=== PATIENT | male | born 2000 | race Hispanic/Latino ===

== ENCOUNTER 2024-03-09 12:42 | Inpatient (IN) | payer OTHER, SELFPAY ==
[2024-03-09] MEDS ORDERED: Ketamine In 0.9 % NaCl 50 MG/5 ML SYRINGE ONE (12:52)
[2024-03-09] MEDS ORDERED: Ipratropium/Albuterol 3 ML NEB NEB PRN (13:58)
[2024-03-09] MEDS ORDERED: Ondansetron PF 4 MG/2 ML Vial IVP PRN (13:58)
[2024-03-09 14:55] LABS: #Basophils 0.03 10x3/uL (0.0-0.2); %Basophils 0.2 % (0.0-1.0); %Eosinophils 0.2 % (0.0-10.0); %Lymphocytes 7.1 % (21.0-51.0); %Monocytes 5.7 % (0.0-10.0); %Neutrophils 86.6 % (42.0-75.0); Hemoglobin 15.6 g/dL (14.0-18.0); Mean Corpuscular HGB CONC 33.9 g/dL (32.0-36.0); Mean Corpuscular Hemoglobin 30.1 pg (27.0-31.0); Mean Corpuscular Volume 88.6 fL (78.0-98.0); Mean Platelet Volume 11.1 fL (7.4-10.4); Platelet Count 158 10x3/uL (130-400); RBC Distribution Width 11.9 % (11.5-14.5); Red Blood Cell (RBC) Count 5.19 mill/uL (4.70-6.10)
[2024-03-09] MEDS ORDERED: CEFAZOLIN 2 GM in Sodium Chloride 0.9% 100 ML IVPB SCH (15:00)
[2024-03-09 15:01] LABS: Anion Gap 15 mmol/L (10-20); BUN (Urea Nitrogen) 11 mg/dL (8.9-20.6); Calc. Creatinine Clearance 0 mL/min (70-130); Calcium 8.9 mg/dL (7.8-10.44); Carbon Dioxide 21 mmol/L (22-29); Chloride 105 mmol/L (98-107); Estimated GFR 128; Glucose 98 mg/dL (70-105); INR-International Normal Ratio 1.1; PTT 32.3 sec (22.9-36.1); Prothrombin Time 14.1 sec (12.0-14.7); Sodium 137 mmol/L (136-145)
[2024-03-09] MEDS ORDERED: CEFAZOLIN 2 GM VIAL ONE (16:34)
[2024-03-09] MEDS ORDERED: fentaNYL 50 mcg/mL 1 mL Vial ONE ×3 (16:34→19:12)
[2024-03-09] MEDS ORDERED: Lidocaine 1% PF 5 ML VIAL ONE (17:01)
[2024-03-09] MEDS ORDERED: Rocuronium Bromide 10 MG/ML (10ML VIAL) ONE (17:01)
[2024-03-09] MEDS ORDERED: fentaNYL PF 100 MCG/2 ML SYRINGE ONE (17:01)
[2024-03-09] MEDS ORDERED: PROPOFOL 20 ML ONE (17:01)
[2024-03-09] MEDS ORDERED: Dexamethasone 20 MG/5 ML VIAL ONE (17:36)
[2024-03-09] MEDS ORDERED: Ondansetron PF 4 MG/2 ML Vial ONE (17:59)
[2024-03-09] MEDS ORDERED: Ketorolac Tromethamine 30 MG (1 mL) VIAL ONE (17:59)
[2024-03-09] MEDS ORDERED: PACU-Morphine 4MG/ML VIAL SLOW IVP PRN (18:24)
[2024-03-09] MEDS ORDERED: Morphine Sulfate 2 MG/ML SYRINGE SLOW IVP PRN (18:24)
[2024-03-09] MEDS ORDERED: Ondansetron HCl/PF 4 MG/2 ML Vial IVP PRN (18:24)
[2024-03-09] MEDS ORDERED: Promethazine HCl 25 MG/ML VIAL IM PRN (18:24)
[2024-03-09] MEDS ORDERED: HYDROmorphone 2 MG/ML VIAL SLOW IVP PRN (18:24)
[2024-03-09] MEDS ORDERED: SUGAMMADEX SODIUM 200 MG/2 ML VIAL ONE (18:25)
[2024-03-09] MEDS ORDERED: HYDROmorphone 0.5 MG/0.5 ML SYRINGE ONE ×2 (19:34→19:50)
[2024-03-09] MEDS: Morphine 2 MG/ML VIAL SLOW IVP PRN (20:53)
[2024-03-09] MEDS: Sodium Chloride 0.9% 1,000 ML IV SCH (20:54)
[2024-03-09 22:16] VITALS: BMI 32.5
[2024-03-09] MEDS: HYDROcodone/Acetaminophen 5/325 mg Tablet PO PRN (22:26)
[2024-03-09] MEDS: Methocarbamol 500 MG TAB PO PRN (22:26)
[2024-03-10 05:04] LABS: #Basophils Less than 0.03 10x3/uL (0.0-0.2); #Eosinophils Less than 0.03 10x3/uL (0.0-0.7); %Basophils 0.1 % (0.0-1.0); %Lymphocytes 8.6 % (21.0-51.0); %Monocytes 3.6 % (0.0-10.0); %Neutrophils 87.5 % (42.0-75.0); Hematocrit 39.5 % (42.0-52.0); Hemoglobin 13.4 g/dL (14.0-18.0); Mean Corpuscular HGB CONC 33.9 g/dL (32.0-36.0); Mean Corpuscular Hemoglobin 30.4 pg (27.0-31.0); Mean Corpuscular Volume 89.6 fL (78.0-98.0); Mean Platelet Volume 10.9 fL (7.4-10.4); Platelet Count 275 10x3/uL (130-400); RBC Distribution Width 12.1 % (11.5-14.5); Red Blood Cell (RBC) Count 4.41 mill/uL (4.70-6.10)
[2024-03-10 05:22] LABS: Anion Gap 14 mmol/L (10-20); BUN (Urea Nitrogen) 10 mg/dL (8.9-20.6); Calc. Creatinine Clearance 188 mL/min (70-130); Calcium 8.5 mg/dL (7.8-10.44); Carbon Dioxide 23 mmol/L (22-29); Chloride 102 mmol/L (98-107); Estimated GFR 131; Glucose 133 mg/dL (70-105); Potassium 3.9 mmol/L (3.5-5.1); Sodium 135 mmol/L (136-145)
[2024-03-10] MEDS: Morphine 2 MG/ML VIAL SLOW IVP PRN (06:13)
[2024-03-10 11:51] VITALS: BP 119/75; TEMP 98
[2024-03-10] MEDS: Enoxaparin 40 MG (0.4 mL) SYRINGE SC SCH (12:26)
[2024-03-10] MEDS ORDERED: Enoxaparin 40 MG (0.4 mL) SYRINGE SC SCH (21:00)
[2024-03-11] MEDS ORDERED: Enoxaparin 40 MG (0.4 mL) SYRINGE SC SCH ×2 (09:00)
== END 2024-03-10 13:01 | disposition home or self-care (01) | DRG 494 ==
LOC: ERS 12:42 → SDC 15:18 → SURG A 20:32
PROVIDERS: ADMIT Surgery; ATTEND Surgery
PROC: 0QSH04Z Reposition Left Tibia with Internal Fixation Device, Open Approach (ICD-10-PCS; principal; 2024-03-09)
DX: S82.242A Displaced spiral fracture of shaft of left tibia, initial encounter for closed fracture (principal); F17.210 Nicotine dependence, cigarettes, uncomplicated; W31.89XA Contact with other specified machinery, initial encounter; Y93.89 Activity, other specified; Y92.89 Other specified places as the place of occurrence of the external cause
CPT/HCPCS: 36415; 36416; 80048; 85025; 85610; 85730; 86850; 86900; 86901; 96374; C1713; G0390; J1100; J1650; J1885; J2272; J2405; J2704; J3010; J3490; J7030